=== PATIENT | male | born 1940 | race Caucasian/White ===

== ENCOUNTER 2016-09-05 03:26 | Emergency (ER) | payer MEDICARE, MEDICAID ==
[~2016-09-05] VITALS: Ht 167.6 cm; Wt 59.0 kg
[~2016-09-05 03:26] MED LIST: DIVAL250 PO; LISI-604 PO; RISP2TAB22 PO
[2016-09-05 04:40] VITALS: BP 139/90
[2016-09-05 05:04] LABS: CLARITY URINE CLEAR (CLEAR); COLOR URINE YELLOW (YELLOW); GLUCOSE URINE NEGATIVE (NEGATIVE); KETONES URINE NEGATIVE (NEGATIVE); LEUKOCYTE ESTERASE URINE 1+ (NEGATIVE); NITRITE URINE NEGATIVE (NEGATIVE); OCCULT BLOOD URINE 2+ (NEGATIVE); PH URINE 6.5 (4.5-8.0); PROTEIN URINE 3+ (NEGATIVE); SPECIFIC GRAVITY URINE 1.014 (1.005-1.030); UROBILINOGEN URINE 0.2 E.U./dL (0.2-1.0)
[2016-09-05 06:40] LABS: SQUAMOUS EPITHELIAL CELL URINE NONE SEEN /lpf (RARE/1+)
[2016-09-05 06:41] LABS: WBC URINE 15-25 /hpf (0-2)
[2016-09-05 06:44] LABS: BACTERIA URINE TRACE; YEAST URINE 1+
== END 2016-09-05 05:43 | disposition home or self-care (01) ==
LOC: ER 03:26
DX: N39.0 Urinary tract infection, site not specified (principal); Z79.899 Other long term (current) drug therapy; I11.0 Hypertensive heart disease with heart failure; I50.9 Heart failure, unspecified
CPT/HCPCS: 51702; 81001; 87086; 99284

== ENCOUNTER 2018-11-05 22:54 | Emergency (ER) | payer MEDICARE, MEDICAID ==
[~2018-11-05] VITALS: Ht 180.3 cm; Wt 77.0 kg
[2018-11-05] MEDS ORDERED: LISINOPRIL 20MG TABLET PO ONE (23:45)
[2018-11-05 23:58] VITALS: BP 188/78
== END 2018-11-06 00:06 | disposition home or self-care (01) ==
LOC: ER 23:37
DX: I16.0 Hypertensive urgency (principal); E11.9 Type 2 diabetes mellitus without complications; I10 Essential (primary) hypertension; F11.10 Opioid abuse, uncomplicated; Z98.890 Other specified postprocedural states; Z79.899 Other long term (current) drug therapy
CPT/HCPCS: 99282